=== PATIENT | female | born 1975 | race Two or more races ===

== ENCOUNTER 2022-12-13 06:02 | Day surgery (SDC) | payer OTHER ==
[~2022-12-13] VITALS: Ht 152.4 cm; Wt 63.5 kg
[~2022-12-13 06:02] MED LIST: SYNTHROID50 MCG PO
== END 2022-12-13 20:20 | disposition home or self-care (01) ==
LOC: CIR.AMB 06:02
PROVIDERS: ATTEND Surgery
DX: C50.412 Malignant neoplasm of upper-outer quadrant of left female breast (principal); R92.1 Mammographic calcification found on diagnostic imaging of breast; R59.0 Localized enlarged lymph nodes; N60.91 Unspecified benign mammary dysplasia of right breast; N60.82 Other benign mammary dysplasias of left breast; N62 Hypertrophy of breast; N64.81 Ptosis of breast; Z20.822 Contact with and (suspected) exposure to COVID-19; I10 Essential (primary) hypertension
CPT/HCPCS: 19301; 38525; 19281; 19318; L8699; A9541

== ENCOUNTER 2023-03-28 06:30 | Day surgery (SDC) | payer OTHER ==
[2023-03-27 09:39] LABS: URINE APPEARANCE Clear; URINE BILIRRUBIN Negative (NEGATIVE); URINE BLOOD Large; URINE COLOR Yellow; URINE GLUCOSE Negative (NEGATIVE); URINE LEUKOCYTE Negative; URINE NITRATE Negative; URINE PROTEIN Negative (NEGATIVE)
[2023-03-27 09:43] LABS: URINE BACTERIA 726.9 uL (0.0-1933); URINE EPITHELIAL CELLS 22.5 uL (0.0-38.8); URINE RBC 65.3 uL (0.0-20.8); URINE WBC 3.8 uL (0.0-23.2)
[2023-03-27 10:01] LABS: HEMOGLOBIN 13.5 g/dL (12.0-15.00); MEAN CELL VOLUME 80.6 fL (80.00-100.00); MEAN CORPUSCULAR HEMOGLOBIN 27.2 pg (27.00-32.0); MEAN CORPUSCULAR HGB CONC 33.7 g/dl (32.0-36.0); PLATELET COUNT 209 K/uL (150-450); RED BLOOD COUNT 4.96 M/uL (4.00-6.00); RED CELL DISTRIBUTION WIDTH 15.1 % (11.5-14.5)
[2023-03-27 10:54] LABS: ALBUMIN 3.7 gm/dL (3.4-5.0); BILIRUBIN TOTAL 0.82 mg/dL (0.3-1.2); CALCIUM 9.4 mg/dL (8.5-10.1); CREATININE SERUM 0.59 mg/dL (0.55-1.02); GFR 109.25; GLOBULINA 3.6 G/DL (2.4-3.5); POTASSIUM 3.02 mEq/L (3.5-5.1); TOTAL PROTEIN 7.3 gm/dL (6.4-8.2)
[2023-03-27 10:59] LABS: INR 0.98; PROTHROMBIN TIME 10.3 SECONDS (9.0-11.5)
[~2023-03-28 06:30] MED LIST changes: +TAMOX PO; +[UNRECOGNIZED DRUG - OTHER] PO
== END 2023-03-28 18:15 | disposition home or self-care (01) ==
LOC: CIR.AMB 06:30
PROVIDERS: ATTEND Surgery
DX: C50.412 Malignant neoplasm of upper-outer quadrant of left female breast (principal); N60.91 Unspecified benign mammary dysplasia of right breast; R92.1 Mammographic calcification found on diagnostic imaging of breast; N60.81 Other benign mammary dysplasias of right breast; N60.82 Other benign mammary dysplasias of left breast; N60.92 Unspecified benign mammary dysplasia of left breast; Z90.13 Acquired absence of bilateral breasts and nipples; I10 Essential (primary) hypertension; E04.1 Nontoxic single thyroid nodule; Z20.822 Contact with and (suspected) exposure to COVID-19